=== PATIENT | female | born 1975 | race Caucasian/White ===

== ENCOUNTER 2019-09-22 18:07 | Emergency (ER) | payer MEDICAID ==
[2019-09-22] MEDS ORDERED: Acetaminophen/HYDROcodone 325-5 MG Tab PO ONE (18:08)
[2019-09-22] MEDS ORDERED: Clindamycin HCl 150 MG Cap PO ONE (18:08)
--- NOTE | 2019-09-22 18:18 | EDM.PDOC ---
ED HPI GENERAL MEDICAL PROBLEM - General Chief Complaint: General Stated Complaint: Tooth pain Time Seen by Provider: 09/22/19 18:18 Source of Information: Reports: Patient - History of Present Illness INITIAL COMMENTS - FREE TEXT/NARRATIVE: Daisha is a 43 yo female who presents to the ED with c/o right lower tooth pain. She reports she had some teeth pulled earlier this week at [facility] in [place]. The last few days she has been having increasing pain. Reports she had some drainage from the area which was foul smelling. She reports she "had an abscess forming" so she "popped it with a needle" and drained fluid. She reports pain is starting to extend up into her cheek as well. Has been taking Tylenol and ibuprofen without relief of pain. No other symptoms or complaints. Onset Date: 09/21/19 Duration: Getting Worse Location: Reports: Other (right lower teeth) Quality: Reports: Ache, Throbbing Severity: Severe Improves with: Reports: Medication Associated Symptoms: Reports: No Other Symptoms Right Tooth/Teeth Pain Score (Numeric/FACES): 9 - Related Data Allergies Allergy/AdvReac Type Severity Reaction Status Date / Time No Known Allergies Allergy Verified 09/22/19 18:12 Home Meds: Home Meds Clindamycin HCl 300 mg PO Q6H 9 Days #36 capsule 09/22/19 [Rx] DULoxetine [Cymbalta] 30 mg PO DAILY 09/22/19 [History] DULoxetine [Cymbalta] 60 mg PO DAILY 09/22/19 [History] Gabapentin [Neurontin] 1,200 mg PO TID 09/22/19 [History] Hydrocodone/Acetaminophen [[place] 5-325 Tablet] 1 each PO Q6H PRN #10 tablet 09/22/19 [Rx] Losartan [Cozaar] 50 mg PO DAILY 09/22/19 [History] atorvaSTATin [Lipitor] 10 mg PO BEDTIME 09/22/19 [History] cloNIDine [Catapres] 0.2 mg PO TID 09/22/19 [History] cloNIDine [Catapres] 0.3 mg PO DAILY 09/22/19 [History] glipiZIDE [Glipizide ER] 5 mg PO DAILY 09/22/19 [History] hydrOXYzine pamoate [Hydroxyzine Pamoate] 50 mg PO DAILY PRN 09/22/19 [History] metFORMIN HCl [Metformin HCl ER] 500 mg PO DAILY 09/22/19 [History] Past Medical History Cardiovascular History: Reports: Hypertension Gastrointestinal History: Reports: GERD, Other (See Below) Other Gastrointestinal History: "liver function not doing well according to her Dr back home" Genitourinary History: Reports: Neurogenic Bladder 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 STONEMASON APPRENTICE History: c-sections x 4 Musculoskeletal History: Reports: Fracture, Other (See Below) Other Musculoskeletal History: 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 ED EXAM, GENERAL - Physical Exam Exam: See Below Exam Limited By: No Limitations General Appearance: Alert, WD/WN, No Apparent Distress, Obese Eye Exam: Bilateral Eye: EOMI, Normal Fundi, Normal Inspection Ears: Normal External Exam, Normal Canal, Hearing Grossly Normal, Normal TMs Nose: Normal Inspection, Normal Mucosa, No Blood Throat/Mouth: Normal Lips, Normal Oropharynx, Normal Voice, No Airway Compromise, Other (RIGHT LOWER TEETH EXTRACTED WITH SUTURE IN PLACE, APPEARS TO HAVE DRY SOCKET, INFLAMMATION OF GUMS, NO DRAIANGE NOTED, TENDERNESS TO PALPATION) Head: Atraumatic, Normocephalic Neck: Normal Inspection, Supple, Non-Tender, Full Range of Motion Lymphatic: No Adenopathy Course - Vital Signs Last Recorded V/S: Last Vital Signs Temp 96.6 F L 09/22/19 18:20 Pulse 113 H 09/22/19 18:20 Resp 20 09/22/19 18:20 BP 128/73 09/22/19 18:20 Pulse Ox 97 09/22/19 18:20 - Orders/Labs/Meds Meds: Medications Discontinued Medications Generic Name Dose Route Start Last Admin Trade Name Freq PRN Reason Stop Dose Admin Hydrocodone Bitart/Acetaminophen 1 packet 09/22/19 18:30 09/22/19 18:38 Take Home: Acetaminophen/Hydrocod, 2 Tab Pack PO 09/22/19 18:31 1 packet ONETIME ONE Administration Clindamycin HCl 1 packet 09/22/19 18:28 09/22/19 18:38 Take Home: Clindamycin Hcl 150 Mg, 6 Cap Pack PO 09/22/19 18:29 1 packet ONETIME ONE Administration Clindamycin HCl 150 mg 09/22/19 18:38 09/22/19 18:42 Cleocin PO 09/22/19 18:39 150 mg STAT STA Administration Clindamycin HCl 450 mg 09/22/19 18:38 09/22/19 18:43 Cleocin PO 09/22/19 18:39 450 mg STAT STA Administration Ketorolac Tromethamine 60 mg 09/22/19 18:28 09/22/19 18:35 Toradol IM 09/22/19 18:29 60 mg ONETIME ONE Administration - Re-Assessments/Exams Free Text/Narrative Re-Assessment/Exam: PLEASE SEE NURSES NOTE FOR PMH, PSH, SH, AND FH. Departure - Departure Time of Disposition: 18:40 Disposition: Home, Self-Care 01 Clinical Impression: Tooth abscess, Dry tooth socket - Discharge Information *PRESCRIPTION DRUG MONITORING PROGRAM REVIEWED*: Yes *COPY OF PRESCRIPTION DRUG MONITORING REPORT IN PATIENT NAKIA: Yes Prescriptions: Clindamycin HCl 300 mg PO Q6H 9 Days #36 capsule Hydrocodone/Acetaminophen [[place] 5-325 Tablet] 1 each PO Q6H PRN #10 tablet PRN Reason: Pain Instructions: Dental Abscess, [id number], Dental Dry Socket Referrals: PCP,None [Primary Care Provider] - Forms: ED Department Discharge Additional Instructions: - Clindamycin every 6 hours x 10 days - [place] 1 tablet every 6 hours as needed for severe pain. Tylenol or ibuprofen as needed for less severe pain - Alternate ice and heat to affected area as needed for comfort - Recommend follow up with dentist for recheck if symptoms worsen or do not seem to be improving - Return to ED for emergent needs Sepsis Event Note (ED) - Focused Exam Vital Signs: Vital Signs Temp Pulse Resp BP Pulse Ox 09/22/19 18:20 96.6 F L 113 H 20 128/73 97 - Problem List & Annotations (1) Dry tooth socket SNOMED Code(s): 50739442 Code(s): M27.3 - ALVEOLITIS OF JAWS Status: Acute (2) Tooth abscess SNOMED Code(s): 809210655 Code(s): K04.7 - PERIAPICAL ABSCESS WITHOUT SINUS Status: Acute - Assessment/Plan Plan: 43 yo presented with c/o mouth pain in area of previous tooth extraction. Appears to have dry socket as well as infection in this area. Patient given loading dose of Clindamycin as well as 60 mg Toradol IM in ED. She is advised to continue Clindamycin 300 mg QID x 10 days. I will give patient [place] to use as needed for severe pain. She is advised to follow up with her dentist for recheck. Patient verbalized understanding and was agreeable with plan.
[2019-09-22 18:22] VITALS: BP 128/73; PULSE 113
[2019-09-22] MEDS: Ketorolac 60 MG/2 ML SDV IM ONE (18:35)
[2019-09-22] MEDS: Take Home: Clindamycin HCl 150 MG Cap, 6 Cap Pack PO ONE (18:38)
[2019-09-22] MEDS: Take Home: Acetaminophen/HYDROcodone 325-5 MG, 2 Tab Pack PO ONE (18:38)
[2019-09-22] MEDS: Clindamycin HCl 150 MG Cap PO STA ×2 (18:42→18:43)
== END 2019-09-22 18:47 | disposition home or self-care (01) ==
LOC: CC.ED 18:07
DX: K04.7 Periapical abscess without sinus (principal); M27.3 Alveolitis of jaws; F41.9 Anxiety disorder, unspecified; F32.9 Major depressive disorder, single episode, unspecified; E11.42 Type 2 diabetes mellitus with diabetic polyneuropathy; Z79.84 Long term (current) use of oral hypoglycemic drugs; Z79.899 Other long term (current) drug therapy
CPT/HCPCS: 96372; 99282; A9270-GY; J1885

== ENCOUNTER 2020-10-28 22:16 | Emergency (ER) | payer MEDICAID ==
[2020-10-28] MEDS: Ketorolac 60 MG/2 ML SDV IM ONE (23:14)
--- NOTE | 2020-10-28 23:14 | EDM.PDOC ---
ED HPI GENERAL MEDICAL PROBLEM - General Chief Complaint: General Stated Complaint: R) KNEE PAIN Time Seen by Provider: 10/28/20 22:33 Source of Information: Reports: Patient History Limitations: Reports: No Limitations - History of Present Illness INITIAL COMMENTS - FREE TEXT/NARRATIVE: This patient is a 44 year old female that presents to the ER. Patient reports sitting on the cough this evening and having sudden onset of right behind the knee and right calf pain. Patient daughter drove patient to this ER, passing another much closer ER. Patient was in this ER last night as visitor. Patient reports that she is in wheelchair 50% of the time due to left leg giving out bec ause of plates and screws. Patient reports that is chronic. Patient reports she does not have many issues out of the right leg. Patient denies injury. Denies n, v, d, f, redness, rash. Onset: Today Onset Date: 10/28/20 Onset Time: 21:00 Location: Reports: Lower Extremity, Right Front/Back Body Image: 1 - pain, tenderness. Quality: Reports: Sharp, Other (popping) Severity: Severe Improves with: Reports: None Worsens with: Reports: None Associated Symptoms: Denies: Confusion, Chest Pain, Cough, cough w sputum, Diaphoresis, Fever/Chills, Headaches, Loss of Appetite, Malaise, Nausea/Vomiting, Rash, Seizure, Shortness of Breath, Syncope, Weakness Right Knee Pain Score (Numeric/FACES): 9 - Related Data Allergies Allergy/AdvReac Type Severity Reaction Status Date / Time No Known Allergies Allergy Verified 10/28/20 23:03 Home Meds: Home Meds Losartan [Cozaar] 50 mg PO DAILY 09/22/19 [History] cloNIDine [Catapres] 0.2 mg PO TID 09/22/19 [History] cloNIDine [Catapres] 0.3 mg PO BEDTIME 09/22/19 [History] hydrOXYzine pamoate [Hydroxyzine Pamoate] 50 mg PO DAILY PRN 09/22/19 [History] Acetaminophen [Tylenol Extra Strength] 1,000 mg PO QAM 02/13/20 [History] Acetaminophen [Tylenol Extra Strength] 1,500 mg PO ASDIRECTED 02/13/20 [History] Cyclobenzaprine [Flexeril] 5 mg PO ASDIRECTED PRN 02/13/20 [History] DULoxetine [Cymbalta] 30 mg PO DAILY 02/13/20 [History] DULoxetine [Cymbalta] 60 mg PO QPM 02/13/20 [History] Gabapentin [Neurontin] 1,200 mg PO TID 02/13/20 [History] atorvaSTATin [Lipitor] 10 mg PO BEDTIME 02/13/20 [History] hydrOXYzine HCL [hydrOXYzine] 50 mg PO ASDIRECTED PRN 02/13/20 [History] Liraglutide [Victoza 2-Og] 1 injection SQ ASDIRECTED 10/28/20 [History] Past Medical History HEENT History: Reports: None Cardiovascular History: Reports: High Cholesterol, Hypertension Respiratory History: Reports: Asthma, Bronchitis, Recurrent Gastrointestinal History: Reports: GERD, Other (See Below) Other Gastrointestinal History: "liver function not doing well according to her Dr back home" Genitourinary History: Reports: Neurogenic Bladder, Pyelonephritis 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 Musculoskeletal History: Reports: Fracture, Other (See Below) Other Musculoskeletal History: 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 Neurological History: Reports: Neuropathy, Peripheral Psychiatric History: Reports: Anxiety, Depression, Panic Attack Endocrine/Metabolic History: Reports: Diabetes, Type II, Obesity/BMI 30+ - Past Surgical History HEENT Surgical History: Reports: None Cardiovascular Surgical History: Reports: None Respiratory Surgical History: Reports: None GI Surgical History: Reports: Cholecystectomy Female Surgical History: Reports: Section Musculoskeletal Surgical History: Reports: ORIF Other Musculoskeletal Surgeries/Procedures:: L tibial ORIF 2017 Social & Family History - Family History Family Medical History: No Pertinent Family History - Tobacco Use Tobacco Use Status *Q: Current Every Day Tobacco User Years of Tobacco use: 23 Packs/Tins Daily: 2 - Caffeine Use Caffeine Use: Reports: Coffee, Energy Drinks, Soda - Recreational Drug Use Recreational Drug Use: No - Living Situation & Occupation Living situation: Reports: with Family ED ROS GENERAL - Review of Systems Review Of Systems: See Below Constitutional: Reports: No Symptoms HEENT: Reports: No Symptoms Respiratory: Reports: No Symptoms Cardiovascular: Reports: No Symptoms Endocrine: Reports: No Symptoms GI/Abdominal: Reports: No Symptoms : Reports: No Symptoms Musculoskeletal: Reports: Leg Pain (right calf pain), Joint Pain (right posterior knee pain) Skin: Reports: No Symptoms Neurological: Reports: No Symptoms Psychiatric: Reports: No Symptoms Hematologic/Lymphatic: Reports: No Symptoms Immunologic: Reports: No Symptoms ED EXAM, GENERAL - Physical Exam Exam: See Below Exam Limited By: No Limitations General Appearance: Alert, WD/WN, No Apparent Distress, Obese Respiratory/Chest: No Respiratory Distress, Lungs Clear, Normal Breath Sounds, No Accessory Muscle Use Cardiovascular: Normal Peripheral Pulses, Regular Rate, Rhythm, No Edema, No Gallop, No Murmur Peripheral Pulses: 2+: Popliteal (L), Popliteal (R), Posterior Tibial (L), Posterior Tibial (R), Dorsalis Pedis (L), Dorsalis Pedis (R) Back Exam: Normal Inspection Extremities: Normal Inspection, Normal Range of Motion, No Pedal Edema, Normal Capillary Refill, Leg Pain (right calf pain, tenderness. right posterior knee pain/tenderness. ), Other (Pulses +2, cap refill <2 sec, sensory/motor function intact, neurovascular intact. The pain is disporporational to exam. No arterial clot suspected, as pulses are strong, foot is warm. ). No: Limited Range of Motion Neurological: Alert, Oriented, Normal Cognition Psychiatric: Anxious, Tearful Skin Exam: Warm, Dry, Intact, Normal Color, No Rash Course - Vital Signs Last Recorded V/S: Last Vital Signs Temp 97.1 F 10/28/20 22:26 Pulse 107 H 10/28/20 22:26 Resp 20 10/28/20 22:26 BP 129/88 10/28/20 22:26 Pulse Ox 97 10/28/20 22:26 - Orders/Labs/Meds Orders: Active Orders 24 hr Category Date Time Status Knee 3V Rt [CR] Stat Exams 10/28/20 23:02 Ordered VL Duplex Lwr Ext Veins Ltd Rt [US] Stat Exams 10/28/20 23:02 Ordered Meds: Medications Discontinued Medications Generic Name Dose Route Start Last Admin Trade Name Freq PRN Reason Stop Dose Admin Ketorolac Tromethamine 60 mg 10/28/20 23:02 10/28/20 23:14 Ketorolac 60 Mg/2 Ml Sdv IM 10/28/20 23:03 60 mg ONETIME ONE Administration - Re-Assessments/Exams Free Text/Narrative Re-Assessment/Exam: 10/28/20 23:55 US RLE: Negative Right Knee xray: Negative, no acute findings Departure - Departure Time of Disposition: 23:59 Disposition: Home, Self-Care 01 Condition: Fair Clinical Impression: Right knee sprain Qualifiers: Encounter type: initial encounter Involved ligament of knee: other ligament Qualified Code(s): S83.8X1A - Sprain of other specified parts of right knee, initial encounter - Discharge Information *PRESCRIPTION DRUG MONITORING PROGRAM REVIEWED*: Not Applicable *COPY OF PRESCRIPTION DRUG MONITORING REPORT IN PATIENT NAKIA: Not Applicable Referrals: Danette Salcedo PA-C [Primary Care Provider] - Forms: ED Department Discharge Additional Instructions: Followup with your primary care provider if pain continues greater than 7 days Return to the nearest ER for emergencies Rest Ice Elevate Wheelchair as needed Knee Immobilizer as needed for support Tylenol or IbuProfen as needed for pain Sepsis Event Note (ED) - Evaluation Sepsis Screening Result: No Definite Risk - Focused Exam Vital Signs: Vital Signs Temp Pulse Resp BP Pulse Ox 10/28/20 22:26 97.1 F 107 H 20 129/88 97 - My Orders Last 24 Hours: My Active Orders 10/28/20 23:02 Knee 3V Rt [CR] Stat VL Duplex Lwr Ext Veins Ltd Rt [US] Stat - Assessment/Plan Last 24 Hours: My Active Orders 10/28/20 23:02 Knee 3V Rt [CR] Stat VL Duplex Lwr Ext Veins Ltd Rt [US] Stat Plan: PLEASE SEE RN NOTE FOR PFSH.
== END 2020-10-29 00:18 | disposition home or self-care (01) ==
LOC: CC.ED 22:16
DX: S83.8X1A Sprain of other specified parts of right knee, initial encounter (principal); I10 Essential (primary) hypertension; E11.9 Type 2 diabetes mellitus without complications; E66.9 Obesity, unspecified; Z72.0 Tobacco use; Z68.43 Body mass index [BMI] 50.0-59.9, adult; X58.XXXA Exposure to other specified factors, initial encounter
CPT/HCPCS: 73562; 93971; 96372; 99284; J1885

== ENCOUNTER → 2020-11-15 | Day surgery (SDC) | payer MEDICAID ==
[~2020-11-15] MED LIST: Ketamine 200 MG/20 ML MDV ONE; Lactated Ringers 1,000 ML IV SCH; Lidocaine 2% 5 ML SDV ONE; Midazolam 1 MG/ML 2 ML SDV ONE; Phenylephrine 1% 10 MG/ML SDV ONE; Propofol 200 MG/20 ML SDV ONE; fentaNYL 100 MCG/2 ML SDV ONE
--- NOTE | 2020-11-15 10:17 | OR ---
DATE OF OPERATION: 11/15/2020 PREOPERATIVE DIAGNOSIS: CHRONIC LEFT-SIDED ABDOMINAL PAIN AND DIARRHEA. POSTOPERATIVE DIAGNOSIS: CHRONIC LEFT-SIDED ABDOMINAL PAIN AND DIARRHEA. SURGEON: Heraclio Potter MD PROCEDURE: TOTAL COLONOSCOPY WITH RANDOM BIOPSIES OF THE LEFT COLON. ANESTHESIA: MAC. SPECIMEN: Colon biopsies. FINDINGS: Normal colonoscopy. INDICATIONS: This 44-year-old female complains of significant left-sided abdominal pain and chronic diarrhea. DESCRIPTION OF PROCEDURE: After adequate preparation, a colonoscope was inserted into the rectum. This was easily passed all the way to the cecum. Confirmation of the cecum was made by visualization of the ileocecal valve. The bowel prep was only a one day prep and was adequate. There was some retained fluid, but this was all suctioned clear to give a good exam of the colon. She has no masses, polyps, bleeding sites, diverticula, or evidence of colitis. I did not find any evidence for her that would explain her chronic diarrhea. Rectal and anal examinations were also normal. Air was suctioned from the colon and the scope removed. JAC/DEMOND /[id number]
--- NOTE | 2020-11-15 10:21 | OR ---
DATE OF OPERATION: 11/15/2020 PREOPERATIVE DIAGNOSIS: GASTROESOPHAGEAL REFLUX DISEASE AND LEFT-SIDED ABDOMINAL PAIN. POSTOPERATIVE DIAGNOSIS: GASTROESOPHAGEAL REFLUX DISEASE AND LEFT-SIDED ABDOMINAL PAIN. SURGEON: Heraclio Potter MD PROCEDURE: ESOPHAGOGASTRODUODENOSCOPY WITH BIOPSY FOR H PYLORI. ANESTHESIA: MAC. SPECIMEN: Pre-pyloric gastric biopsy. INDICATIONS: This 44-year-old female has symptoms of regurgitation and heartburn. Her main problem is chronic diarrhea with left-sided abdominal pain, mostly in the left upper quadrant. FINDINGS: Normal EGD. DESCRIPTION OF PROCEDURE: After adequate preparation, a gastroscope was inserted into the esophagus. This was passed down to the distal esophagus. She shows no evidence of a hiatal hernia, reflux esophagitis, strictures, masses, or bleeding sites. The scope was advanced into the stomach. Both forward and retroflexed views were done and are normal. The scope was advanced through the pylorus into the duodenum and the 1st and 2nd parts are normal. On withdrawal of the scope, there was a biopsy done in the pre-pyloric antral area of the stomach for evaluation of H pylori. The rest of the EGD exam is normal. Air was suctioned from the stomach and the scope removed. BPB/MODL /[id number]
== END ==
LOC: CC.SDS 07:49
PROVIDERS: ATTEND Surgery
DX: K52.9 Noninfective gastroenteritis and colitis, unspecified (principal); K21.9 Gastro-esophageal reflux disease without esophagitis; I10 Essential (primary) hypertension; F32.9 Major depressive disorder, single episode, unspecified; E78.5 Hyperlipidemia, unspecified; E11.9 Type 2 diabetes mellitus without complications; Z79.899 Other long term (current) drug therapy
CPT/HCPCS: 00813; 36415; 84703; 87081; J2250; J2370; J2704; J3010; J7120

== ENCOUNTER 2020-12-11 18:10 | Emergency (ER) | payer MEDICAID ==
[2020-12-11 18:59] LABS: CHLORIDE,CL 102 mEq/L (98-106); SODIUM,NA 140 mEq/L (136-145)
[2020-12-11] MEDS ORDERED: Nystatin Crm 30 GM Tube TOP ONE (19:27)
[2020-12-11] MEDS ORDERED: Take Home: Ondansetron 4 MG Tab.DIS, 2 Tab Pack PO ONE (19:28)
--- NOTE | 2020-12-11 19:36 | EDM.PDOC ---
ED HPI GENERAL MEDICAL PROBLEM - General Chief Complaint: Abdominal Pain Stated Complaint: "UTI or kidney infection" Time Seen by Provider: 12/11/20 18:40 Source of Information: Reports: Patient, Old Records History Limitations: Reports: No Limitations - History of Present Illness INITIAL COMMENTS - FREE TEXT/NARRATIVE: Daisha is a 44 year old female presents to ER with complaints of ongoing abdominal cramping, flank pain, a rash on her abdomen, nausea/vomiting and diarrhea. States has been having issues with diarrhea for about a month. Had a colonoscopy which was normal. Has a CT scan scheduled next week with her usual provider in [place]. States urinary symptoms have been ongoing for a week, is worried about an infection as states this happens frequently. Has a rash under her abdominal folds now for 2 days as well. No fevers. Has been eating and drinking but not "up to my norm". Worries about dehydration. Onset: Gradual Duration: Week(s):, Waxing/Waning Location: Reports: Abdomen Quality: Reports: Ache Severity: Moderate Associated Symptoms: Reports: Loss of Appetite, Nausea/Vomiting. Denies: Confusion, Cough, Fever/Chills, Headaches, Malaise, Shortness of Breath Lower Abdomen Pain Score (Numeric/FACES): 7 - Related Data Allergies Allergy/AdvReac Type Severity Reaction Status Date / Time No Known Allergies Allergy Verified 12/11/20 18:13 Home Meds: Home Meds cloNIDine [Catapres] 0.2 mg PO TID 09/22/19 [History] Acetaminophen [Tylenol Extra Strength] 1,000 mg PO BID PRN 02/13/20 [History] Cyclobenzaprine [Flexeril] 5 - 10 mg PO TID PRN 02/13/20 [History] DULoxetine [Cymbalta] 30 mg PO DAILY 02/13/20 [History] DULoxetine [Cymbalta] 60 mg PO DAILY 02/13/20 [History] Gabapentin [Neurontin] 1,200 mg PO TID 02/13/20 [History] atorvaSTATin [Lipitor] 10 mg PO BEDTIME 02/13/20 [History] hydrOXYzine HCL [hydrOXYzine] 50 mg PO BID PRN 02/13/20 [History] Liraglutide [Victoza 2-Og] 1.8 mg SQ DAILY 10/28/20 [History] Albuterol Sulfate [Albuterol Sulfate HFA] 1 - 2 puff INH Q4H PRN 11/14/20 [History] Cetirizine [ZyrTEC] 10 mg PO DAILY PRN 11/14/20 [History] Ibuprofen 800 mg PO QID PRN 11/14/20 [History] Losartan/Hydrochlorothiazide [Losartan-HCTZ 50-12.5 MG] 1 each PO DAILY 11/14/20 [History] lamoTRIgine [Lamotrigine] 150 mg PO DAILY 11/14/20 [History] Nystatin [Nystatin Crm] 30 gm TOP TID #1 gm 12/11/20 [Rx] Pantoprazole [ProTONIX] 40 mg PO DAILY #30 tab.cr 12/11/20 [Rx] Past Medical History HEENT History: Reports: None Cardiovascular History: Reports: High Cholesterol, Hypertension Respiratory History: Reports: Asthma, Bronchitis, Recurrent Gastrointestinal History: Reports: GERD, Other (See Below) Other Gastrointestinal History: "liver function not doing well according to her Dr back home" Genitourinary History: Reports: Neurogenic Bladder, Pyelonephritis HUMAN RESOURCES GENERALIST History: Reports: Other HUMAN RESOURCES GENERALIST History: c-sections x 4 Musculoskeletal History: Reports: Fracture, Other (See Below) Other Musculoskeletal History: 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 Neurological History: Reports: Neuropathy, Peripheral Psychiatric History: Reports: Anxiety, Depression, Panic Attack Endocrine/Metabolic History: Reports: Diabetes, Type II, Obesity/BMI 30+ - Past Surgical History HEENT Surgical History: Reports: None Cardiovascular Surgical History: Reports: None Respiratory Surgical History: Reports: None GI Surgical History: Reports: Cholecystectomy Female Surgical History: Reports: Section Musculoskeletal Surgical History: Reports: ORIF Other Musculoskeletal Surgeries/Procedures:: L tibial ORIF 2017 Social & Family History - Family History Family Medical History: No Pertinent Family History - Tobacco Use Tobacco Use Status *Q: Current Every Day Tobacco User Years of Tobacco use: 20 Packs/Tins Daily: 1.5 - Caffeine Use Caffeine Use: Reports: Coffee, Energy Drinks, Soda - Recreational Drug Use Recreational Drug Use: No - Living Situation & Occupation Living situation: Reports: with Family ED ROS GENERAL - Review of Systems Review Of Systems: See Below Constitutional: Reports: Malaise, Decreased Appetite. Denies: Fever, Chills, Weakness, Fatigue HEENT: Denies: Ear Pain, Sinus Problem, Throat Pain Respiratory: Denies: Shortness of Breath, Cough Cardiovascular: Denies: Chest Pain, Edema, Lightheadedness Endocrine: Reports: Fatigue GI/Abdominal: Reports: Abdominal Pain, Diarrhea, Decreased Appetite, Nausea, Vomiting. Denies: Black Stool, Bloody Stool : Reports: Dysuria, Flank Pain Musculoskeletal: Reports: No Symptoms Skin: Reports: No Symptoms Neurological: Reports: Weakness ED EXAM, GI/ABD - Physical Exam Exam: See Below Exam Limited By: No Limitations General Appearance: Alert, WD/WN, No Apparent Distress Ears: Normal External Exam, Normal TMs Nose: Normal Inspection, Normal Mucosa, No Blood Throat/Mouth: Normal Inspection, Normal Oropharynx Head: Normocephalic Neck: Normal Inspection, Supple, Non-Tender Respiratory/Chest: No Respiratory Distress, Lungs Clear, Normal Breath Sounds Cardiovascular: Regular Rate, Rhythm GI/Abdominal Exam: Normal Bowel Sounds, Soft, Tender (diffusely throughout), Other (has red, moist rash under abdominal folds consistent with yeast infection of the skin) Extremities: Normal Inspection, No Pedal Edema Course - Vital Signs Last Recorded V/S: Last Vital Signs Temp 98.2 F 12/11/20 18:52 Pulse 102 H 12/11/20 18:52 Resp 16 12/11/20 18:52 BP 123/71 12/11/20 18:52 Pulse Ox 96 12/11/20 18:52 - Orders/Labs/Meds Labs: Laboratory Tests 12/11/20 12/11/20 12/11/20 Range/Units 18:30 18:30 18:30 WBC 7.3 (4.0-11.0) 10^3/uL RBC 4.77 (4.00-5.50) x10^6/uL Hgb 11.2 L (12.0-16.0) g/dL Hct 38.1 (37.0-47.0) % MCV 79.9 L (83.0-97.0) fL MCH 23.5 L (27.0-32.0) pg MCHC 29.4 L (32.0-36.0) g/dL RDW Coeff of Kristopher 18.3 H (11.0-15.0) % Plt Count 320 (150-400) 10^3/uL Immature Gran % (Auto) 1.8 (0.0-4.9) % Neut % (Auto) 62.6 (41-71) % Lymph % (Auto) 23.9 L (24-44) % [place] % (Auto) 6.2 (0-10) % Eos % (Auto) 4.8 (0-6) % Baso % (Auto) 0.7 (0-1) % Neut # (Auto) 4.56 (1.80-8.00) x10^3/uL Lymph # (Auto) 1.74 (0.60-5.00) 10^3/uL [place] # (Auto) 0.45 (0.00-1.50) 10^3/uL Eos # (Auto) 0.35 (0.00-1.50) 10^3/uL Baso # (Auto) 0.05 (0.00-0.50) 10^3/uL Immature Gran # (Auto) 0.13 (0.00-0.49) 10^3/uL Sodium 140 (136-145) mEq/L Potassium 4.0 (3.5-5.0) mEq/L Chloride 102 (98-106) mEq/L Carbon Dioxide 28 (21-32) mmol/L BUN 10 (7-18) mg/dL Creatinine 0.9 (0.6-1.0) mg/dL Est Cr Clr Drug Dosing 73.27 mL/min Estimated GFR (MDRD) > 60 (>=60) mL/min Glucose 148 H (75-99) mg/dL Calcium 8.2 L (8.4-10.1) mg/dL Total Bilirubin 0.2 (0.0-1.0) mg/dL AST 121 H (15-37) U/L ALT 40 (12-78) U/L Alkaline Phosphatase 123 H (46-116) U/L C-Reactive Protein 4.3 H (0.2-0.8) mg/dL Total Protein 7.8 (6.4-8.2) g/dL Albumin 2.8 L (3.4-5.0) g/dL Amylase 21 L (25-115) U/L Lipase 136 (73-393) U/L Urine Color Yellow (YELLOW) Urine Appearance Clear (CLEAR) Urine pH 7.0 (4.5-8.0) Ur Specific [place] 1.015 (1.003-1.020) Urine Protein Negative (NEGATIVE) mg/dL Urine Glucose (UA) Negative (NEGATIVE) mg/dL Urine Ketones Negative (NEGATIVE) mg/dL Urine Occult Blood Trace-intact H (NEGATIVE) Urine Nitrite Negative (NEGATIVE) Urine Bilirubin Negative (NEGATIVE) Urine Urobilinogen 0.2 (0.2-1.0) EU/dL Ur Leukocyte Esterase Negative (NEGATIVE) Urine RBC 0-5 (0-5) /HPF Urine WBC Not Reportable Ur Squamous Epith Cells Few H (NOT SEEN) /HPF Urine Bacteria Few H (NOT SEEN) /HPF Meds: Medications Discontinued Medications Generic Name Dose Route Start Last Admin Trade Name Freq PRN Reason Stop Dose Admin Nystatin 15 gm 12/11/20 19:27 12/11/20 19:43 Nystatin Crm 30 Gm Tube TOP 12/11/20 19:28 1 tube NOW ONE Administration Ondansetron HCl 1 packet 12/11/20 19:28 12/11/20 19:40 Take Home: Ondansetron 4 Mg Tab.Dis, 2 Tab Pack PO 12/11/20 19:29 1 packet ONETIME ONE Administration - Re-Assessments/Exams Free Text/Narrative Re-Assessment/Exam: 12/11/20 Labs are all essentially normal. WBC normal. UA normal. Liver enzymes mildly elevated. Did advise patient nothing emergent on labs, can continue to follow this with her usual PCP as she has been. Can start Protonix to see if that will help with any of her symptoms as well as take Zofran for her nausea. Start Nystatin cream for the yeast infection. Keep scheduled CT planned for next week. Departure - Departure Time of Disposition: 19:34 Disposition: Home, Self-Care 01 Condition: Good Clinical Impression: Abdominal pain - Discharge Information *PRESCRIPTION DRUG MONITORING PROGRAM REVIEWED*: No *COPY OF PRESCRIPTION DRUG MONITORING REPORT IN PATIENT NAKIA: No Prescriptions: Nystatin [Nystatin Crm] 30 gm TOP TID #1 gm Pantoprazole [ProTONIX] 40 mg PO DAILY #30 tab.cr Instructions: Abdominal Pain, Adult, [id number] Referrals: PCP,None [Primary Care Provider] - Forms: ED Department Discharge Additional Instructions: 1. Rest 2. Push fluids 3. zofran 4 mg every 8 hours tonight as needed for nausea 4. Protonix 40 mg daily 5. Nystatin cream 2-3 times per day to abdominal folds 6. Contact your primary care provider tomorrow if need further nausea meds or CT scan done sooner if pain worsens. Sepsis Event Note (ED) - Evaluation Sepsis Screening Result: No Definite Risk - Focused Exam Vital Signs: Vital Signs Temp Pulse Resp BP Pulse Ox 12/11/20 18:52 98.2 F 102 H 16 123/71 96
== END 2020-12-11 19:44 | disposition home or self-care (01) ==
LOC: CC.ED 18:10
DX: R10.9 Unspecified abdominal pain (principal); R21 Rash and other nonspecific skin eruption; I10 Essential (primary) hypertension; E78.00 Pure hypercholesterolemia, unspecified; K21.9 Gastro-esophageal reflux disease without esophagitis; E11.9 Type 2 diabetes mellitus without complications; E66.9 Obesity, unspecified; Z68.37 Body mass index [BMI] 37.0-37.9, adult; Z72.0 Tobacco use; Z79.899 Other long term (current) drug therapy
CPT/HCPCS: 36415; 80053; 81001; 82150; 83690; 85025; 86140; 99284; A9270

== ENCOUNTER 2021-06-03 15:47 | Emergency (ER) | payer BC, MEDICAID ==
[2021-06-03] MEDS ORDERED: Albuterol/Ipratropium 3.0-0.5 MG/3 ML Neb Soln NEB ONE (16:12)
[2021-06-03 16:26] LABS: CHLORIDE,CL 102 mEq/L (98-106); SODIUM,NA 139 mEq/L (136-145)
[2021-06-03] MEDS ORDERED: Sodium Chloride 0.9% 10 ML Syringe FLUSH PRN (16:47)
[2021-06-03] MEDS ORDERED: Sodium Chloride 0.9% 1,000 ML IV ONE ×2 (16:48→18:14)
[2021-06-03] MEDS ORDERED: 50% Dextrose in Water 50 ML Syringe IVPUSH PRN (17:22)
[2021-06-03] MEDS ORDERED: Glucagon,Human Recombinant 1 MG Vial IM PRN (17:22)
[2021-06-03] MEDS ORDERED: Insulin Regular, Human 100 Units/ML 3 ML Vial IV ONE (17:22)
== END 2021-06-03 19:49 | disposition home or self-care (01) ==
LOC: CC.ED 15:47
DX: R07.9 Chest pain, unspecified (principal); E11.65 Type 2 diabetes mellitus with hyperglycemia; E78.00 Pure hypercholesterolemia, unspecified; I10 Essential (primary) hypertension; E11.42 Type 2 diabetes mellitus with diabetic polyneuropathy; E66.9 Obesity, unspecified; Z68.43 Body mass index [BMI] 50.0-59.9, adult; Z72.0 Tobacco use; Z20.822 Contact with and (suspected) exposure to COVID-19
CPT/HCPCS: 36415; 71045; 80053; 81003; 82550; 82800; 82947; 83615; 83690; 83735; 84484; 85025; 85379; 85610; 93005; 93010; 94640; 99285; 99285-25; J1815-GY; J7030; J7620-GY; U0002

== ENCOUNTER 2021-10-24 18:28 | Emergency (ER) | payer BC, MEDICAID | END 2021-10-24 20:25 | disposition home or self-care (01) | LOC: CC.ED 18:28 | DX: S60.222A Contusion of left hand, initial encounter (principal); J45.909 Unspecified asthma, uncomplicated; I10 Essential (primary) hypertension; B37.3 Candidiasis of vulva and vagina; F17.210 Nicotine dependence, cigarettes, uncomplicated; E66.9 Obesity, unspecified; Z68.42 Body mass index [BMI] 45.0-49.9, adult; Z79.899 Other long term (current) drug therapy; Z90.49 Acquired absence of other specified parts of digestive tract; W18.39XA Other fall on same level, initial encounter | CPT/HCPCS: 73130-LT; 81001; 99283 ==